=== PATIENT | male | born 1985 | race Caucasian/White ===

== ENCOUNTER 2022-12-09 03:36 | Emergency (ER) | payer BC, OTHER ==
[2022-12-09 04:20] LABS: HEMATOCRIT 47.1 % (40.1-51.0); HEMOGLOBIN 15.8 gm/dl (13.7-17.5); MEAN CORPUSCULAR HEMOGLOBIN 29.9 pg (25.7-32.2); MEAN CORPUSCULAR HGB CONC 33.5 g/dl (32.2-35.5); MEAN PLATELET VOLUME 9.7 fl (9.4-12.3); PLATELET COUNT,PLT 314 K/mm3 (163-337); RED BLOOD CELL COUNT 5.29 M/mm3 (4.63-6.08); WHITE BLOOD CELL COUNT,WBC 10.28 K/mm3 (4.23-9.07)
[2022-12-09] MEDS ORDERED: Lactated Ringers 1,000 ML IV ONE (04:27)
[2022-12-09 04:39] LABS: A/G RATIO 1.1 (1-2); ALBUMIN 3.7 g/dl (3.4-5.0); ANION GAP 12.8 (5-15); BILIRUBIN TOTAL 0.3 mg/dL (0.2-1.0); BUN/CREATININE RATIO 15.5 (14-18); C-REACTIVE PROTEIN 1.8 mg/dL (<1.0); CALCIUM 9.1 mg/dL (8.5-10.1); CREATININE 1.1 mg/dL (0.7-1.3); EST CRCL DRUG DOSING (CG) 98.88 mL/min; POTASSIUM,K 3.8 mEq/L (3.5-5.1); PROTEIN TOTAL,TP 7.1 g/dl (6.4-8.2)
[2022-12-09] MEDS ORDERED: cefTRIAXone 1 GM in Sodium Chloride 0.9% 100 ML IV ONE (05:05)
== END 2022-12-09 06:22 | disposition home or self-care (01) ==
LOC: JD.ED 03:36
DX: L03.115 Cellulitis of right lower limb (principal)
CPT/HCPCS: 36415; 73560; 80053; 83605; 84550; 85027; 86140; 87040; 96361; 96365; 99283; J0696; J3490; J7120